=== PATIENT | female | born 1970 | race Caucasian/White ===

== ENCOUNTER → 2016-03-05 | Outpatient (CLI) | payer OTHER ==
--- NOTE | 2016-03-05 16:43 | MA ---
Screening Digital Mammogram With iCAD Analysis Clinical Indications: Routine screening. The patient has had prior benign breast biopsy. Technique: Standard cephalocaudal projections are obtained. Digital breast tomosynthesis was performe d in the MLO projection with reconstruction at 1.0 mm slice thickness and composite MLO views reconst ructed. This examination is processed by the iCAD computer-aided detection system. Comparison: February 2015, January 2014, January 2013, January 2012, December 2010. Breast density: Type B; Scattered fibroglandular densities. Findings: CAD was reviewed. Well-circumscribed nodular asymmetry in the anterior subareolar left [address] is stable in size and consistent with a cyst which was demonstrated on sonographic evaluation Kayla satnam 2010. No masses, suspicious calcifications, or secondary signs of malignancy are seen. There has been no significant change in the appearance of either breast. Impression: Benign mammography, BI-RADS 2. Recommendation: Routine mammographic screening in one year as long as physical examination is negativ [facility]. Negative mammography should not preclude additional workup of a clinically suspicious finding. The patient's information is entered into a reminder system with a target due date for her next mammo gram.
== END ==
LOC: FIMAGING 15:15
DX: Z12.31 Encounter for screening mammogram for malignant neoplasm of breast (principal)
CPT/HCPCS: G0202

== ENCOUNTER → 2016-10-27 | Outpatient (CLI) | payer OTHER | LOC: FIMAGING 12:22 | PROVIDERS: ATTEND Family Medicine Sports Medicine | DX: S62.346A Nondisplaced fracture of base of fifth metacarpal bone, right hand, initial encounter for closed fracture (principal) ==